=== PATIENT | female | born 1950 | race American Indian/Alaskan Native ===

== ENCOUNTER 2016-12-25 14:17 | Outpatient (CLI) | payer BC, MEDICARE ==
--- NOTE | 2016-12-25 16:19 | Ultrasound Report ---
BILATERAL DIGITAL DIAGNOSTIC MAMMOGRAM with CAD and BILATERAL BREAST ULTRASOUND: 12/25/16 CLINICAL: Bilateral palpable breast lumps. COMPARISON:11/08/15 FINDINGS: The breasts are heterogeneously dense, which may obscure small masses and the breasts are sufficiently dense to limit the sensitivity of mammography.Right upper outer biopsy clip and two left outer biopsy clips.No mammographic abnormality at bilateral upper outer palpable markers. A few bilateral benign calcifications. Ultrasound of the right breast (including all four quadrants and the retroareolar area) was performed and demonstrated normal fibroglandular and fatty structures. No mass, cyst or shadowing to correlate with where she feels a lump. Ultrasound of the left breast (including all four quadrants and the retroareolar area) was performed. A solid oval heterogeneous hypoechoic mass at 3 o'clock 3 cm from the nipple measures 8 x 4 x 6 mm. No biopsy clip is identified within or adjacent to the mass and the mass is not identified on previous ultrasound examinations of the left breast. A lymph node with central fat and benign morphology is located at 1 o'clock 6 cm from the nipple and it measures 6 x 5 x 3 mm. IMPRESSION: A solid 8mm left breast mass at 3 o'clock 3 cm from the nipple. Recommend ultrasound-guided needle core biopsy to confirm benignity. Negative right breast. BI-RADS CATEGORY: 4--Suspicious I discussed the findings and the recommendation for ultrasound guided needle core biopsy of the left breast mass with the patient at the time of the examination. ACR BI-RADS MAMMOGRAPHIC CODES: 0 = Needs additional imaging evaluation; 1 = Negative; 2 = Benign; 3 = Probably benign; 4 = Suspicious; 5 = Malignant; 6 = Known biopsy-proven malignancy COMMENT: 1. Dense breast tissue, i.e., adenosis, fibrocystic changes, etc., may obscure an underlying neoplasm. 2. Approximately 10% of cancers are not detected with mammography. 3. A negative mammography report should not delay biopsy if a clinically suspicious mass is present. COMMENT: Patient follow-up letters are generated by our [employer] application.
== END 2016-12-25 14:18 | disposition home or self-care (01) ==
LOC: SPVWC 14:17
PROVIDERS: ATTEND Internal Medicine
DX: N63 Unspecified lump in breast (principal); R92.1 Mammographic calcification found on diagnostic imaging of breast
CPT/HCPCS: 76641; G0204; 77066

== ENCOUNTER 2017-01-08 08:11 | Outpatient (CLI) | payer BC, MEDICARE ==
--- NOTE | 2017-01-08 09:59 | Mammography Report ---
LEFT DIGITAL DIAGNOSTIC MAMMOGRAM: 01/08/17 08:11:00 CLINICAL: For clip placement immediately status post ultrasound biopsy. COMPARISON:12/25/16 FINDINGS: A new biopsy clip is identified at 3 o'clock and correlates with today's biopsy. The clip is in close proximity to another clip which was placed in 2013 at another institution. IMPRESSION: Concordant clip placement status post ultrasound biopsy. BI-RADS CATEGORY: 4--Suspicious Pathology pending.
--- NOTE | 2017-01-08 10:53 | Ultrasound Report ---
ULTRASOUND GUIDED NEEDLE CORE BIOPSY LEFT BREAST WITH CLIP PLACEMENT: 01/08/17 CLINICAL: Left breast mass at 3 o'clock. COMPARISON :12/25/16 FINDINGS: The procedure was explained to the patient and informed consent was obtained. Ultrasound demonstrated the previously described oval solid heterogeneous hypoechoic mass at 3 o'clock 3 cm from the nipple. I marked the breast with a felt tip marker and a time out was called. The skin was prepped with Betadine and anesthetized with 1% lidocaine. Needle core biopsy was performed through a tiny dermatotomy using ultrasound guidance, 2% lidocaine with epinephrine for deep anesthesia and a 14-gauge Achieve biopsy device. Imaging demonstrated satisfactory sampling. 3 cores were obtained and placed in formalin. A Mammostar clip was deployed within the mass. The patient tolerated the procedure well and there were no apparent complications. Hemostasis was achieved with gentle pressure and a sterile dressing was applied. A two view mammogram demonstrated concordant placement of the clip. The clip is next to another clip which has been present since 2012. However, this second clip was not apparent within the mass by ultrasound. She left the department in good condition and was given instructions for wound care and followup. IMPRESSION: Uncomplicated ultrasound guided needle core biopsy with clip placement left breast.
== END 2017-01-08 08:12 | disposition home or self-care (01) ==
LOC: SPVWC 08:11
PROVIDERS: ATTEND Internal Medicine
DX: N63 Unspecified lump in breast (principal)
CPT/HCPCS: 19083; 88305; A4648; G0206